=== PATIENT | male | born 1955 | race Caucasian/White ===

== ENCOUNTER 2023-04-21 17:54 | Emergency (ER) | payer MEDICARE, SELFPAY ==
[2023-04-21 17:57] VITALS: BP 149/81; PULSE 90; RESP 14; O2SAT 98
--- NOTE | 2023-04-21 18:04 | CTR_ITS ---
PROCEDURE INFORMATION: Exam: CT Abdomen And Pelvis With Contrast Exam date and time: 04/21/2023 6:51 PM Age: 67 years old Clinical indication: Abdominal pain; Generalized; Prior surgery; Surgery date: 6+ months; Surgery type: Appy. Iliac stent; Patient HX: C/O diffuse abd pain with nausea TECHNIQUE: Imaging protocol: Computed tomography of the abdomen and pelvis with contrast. Radiation optimization: All CT scans at this facility use at least one of these dose optimization techniques: automated exposure control; mA and/or kV adjustment per patient size (includes targeted exams where dose is matched to clinical indication); or iterative reconstruction. Contrast material: OMNI 350; Contrast volume: 100 ml; Contrast route: INTRAVENOUS (IV); REPORTING DATA: Count of CT and Cardiac NM exams in prior 12 months: This patient has received 0 known CTs and 0 known cardiac nuclear medicine studies in the 12 months prior to the current study. COMPARISON: No relevant prior studies available. RADIATION DOSE METRICS: Total DLP (mGy-cm): 427.23 FINDINGS: Lungs: Emphysematous changes suspected. Coronary arteries: Coronary artery atherosclerotic calcification. Liver: Hepatic steatosis. Gallbladder and bile ducts: Gallbladder wall appears somewhat prominent with cholelithiasis, ultrasound could further evaluate this as clinically indicated. Pancreas: Normal. No ductal dilation. Spleen: Spleen enlarged to 16 cm. Adrenal glands: Normal. No mass. Kidneys and ureters: Normal. No hydronephrosis. Stomach and bowel: Prominent fluid in the small bowel without dilation along with gastric wall thickening may reflect a gastroenteritis. Mild sigmoid colon wall thickening is also present, likely secondary to nondistention, please correlate for colitis. Diverticulosis without diverticulitis. Appendix: No evidence of appendicitis. Intraperitoneal space: Unremarkable. No free air. No significant fluid collection. Vasculature: Right common and external iliac artery stent. Lymph nodes: Unremarkable. No enlarged lymph nodes. Urinary bladder: Unremarkable as visualized. Reproductive: Unremarkable as visualized. Bones/joints: Unremarkable. No acute fracture. Soft tissues: Small left inguinal hernia containing omentum without bowel. CT/CT abdomen pelvis w con* [id number] IMPRESSION: 1. Prominent fluid in the small bowel without dilation along with gastric wall thickening may reflect a gastroenteritis. Mild sigmoid colon wall thickening is also present, likely secondary to nondistention, please correlate for colitis. 2. Gallbladder wall appears somewhat prominent with cholelithiasis, ultrasound could further evaluate this as clinically indicated. 3. Spleen enlarged to 16 cm. 4. Diverticulosis without diverticulitis. 5. Right common and external iliac artery stent. 6. Small left inguinal hernia containing omentum without bowel. 7. Emphysematous changes suspected. 8. Coronary artery atherosclerotic calcification. 9. Hepatic steatosis.
--- NOTE | 2023-04-21 18:05 | W.ED.ABDPA2 ---
HPI - Abdominal Pain General: Chief Complaint: Abdominal Pain Stated Complaint: not able to eat, nausea Time Seen by Provider: 04/21/23 18:02 Source: patient Mode of arrival: ambulatory Limitations: no limitations History of Present Illness: 67-year-old male states he had some abdominal pain over the last 4 days. He states it is mainly with eating he states he had a hard time swallowing and gets a lot of pain when he is swallowing. He denies any vomiting or diarrhea states that he is 88 and is really not having much pain his pain currently is a 2 out of 10. He sent here from urgent care. Associated Symptoms: Denies chills, dysuria and fever(s) Review of Systems Const: Denies: fever(s), chills, body aches or change in appetite ENMT: Denies: throat pain or dental pain Card: Denies: chest pain Resp: Denies: dyspnea GI: Reports: abdominal pain and dysphagia : Denies: dysuria Musc: Denies: neck pain or back pain Skin/Breast: Denies: rash Neuro: Denies: headache(s) Psych: Denies: depression Cali/Lymph: Denies: easy bruising All/Imm: Denies: urticaria Physical Exam Const: COMMON NORMALS: no acute distress, patient oriented x3 and healthy appearing HENMT: COMMON NORMALS: normocephalic and atraumatic HEAD & SCALP: normocephalic and atraumatic Eye: COMMON NORMALS: Equal, round and reactive pupils present and EOMs intact bilaterally PUPIL: Yes Equal, round and reactive pupils present Neck/C-Spine: COMMON NORMALS: full ROM and supple Chest: COMMONS NORMALS: normal inspection of the chest and normal palpation of entire chest wall Resp: COMMON NORMALS: normal respiratory effort, No retractions, No use of accessory muscles and clear to auscultation bilaterally AUSCULTATION: clear to auscultation bilaterally Cardio: COMMON NORMALS: regular rate, regular rhythm and No murmurs present (Cardio) RATE: regular rate RHYTHM: regular rhythm GI: COMMON NORMALS: Normal to inspection, nondistended, normoactive bowel sounds present, Soft to palpation, non-tender and no masses PALPATION: Yes Soft to palpation Extremity: COMMON NORMALS: normal to inspection and full ROM Neuro: COMMON NORMALS: patient oriented x3, moves all extremities and no focal motor deficits Psych: COMMON NORMALS: mental status grossly normal, Normal thought process present and cooperative THOUGHT PROCESS: Normal thought process present Skin: COMMON NORMALS: no rashes or lesions noted and no wounds GENERAL SKIN EXAM: no rashes or lesions noted Course Vital Signs: Vital signs: Vital Signs Pulse Rate 85 04/21/23 20:07 Respiratory Rate 14 04/21/23 17:57 Blood Pressure 127/70 04/21/23 20:07 Pulse Oximetry 93 04/21/23 20:07 Oxygen Delivery Me thod Room Air 04/21/23 17:57 MDM - Abdominal Pain Medical Decision Making Patient presents here with abdominal pain CT showed gastroenteritis he had no pain here he does have a leukopenia along with thrombocytopenia on his blood work I did spoke to the hospitalist will get admit him. Is worried about possible tickborne illness. I talked to patient form he has a severe low white count and low platelet I strongly recommended admission he states he is not staying in the hospital no matter what informed him that his blood work was very abnormal that he needed further work-up he understood this and he would not agree to admission he is going to sign out AGAINST MEDICAL ADVICE we will place him on doxycycline was trying to talk him into a tick panel but he was refusing. He is return if worsening or if he changes his mind. Medical Records I reviewed the patient's medical records. Lab Data I reviewed the patient's lab results. 04/21/23 18:15 04/21/23 18:15 Labs/Radiology: Radiology Impressions Abdomen/Pelvis CT 04/21/23 18:04 IMPRESSION: 1. Prominent fluid in the small bowel without dilation along with gastric wall thickening may reflect a gastroenteritis. Mild sigmoid colon wall thickening is also present, likely secondary to nondistention, please correlate for colitis. 2. Gallbladder wall appears somewhat prominent with cholelithiasis, ultrasound could further evaluate this as clinically indicated. 3. Spleen enlarged to 16 cm. 4. Diverticulosis without diverticulitis. 5. Right common and external iliac artery stent. 6. Small left inguinal hernia containing omentum without bowel. 7. Emphysematous changes suspected. 8. Coronary artery atherosclerotic calcification. 9. Hepatic steatosis. Laboratory Results WBC 1.2 10^3/uL (4.0-10.0) L 04/21/23 18:15 RBC 5.37 10^6/uL (4.1-5.3) H 04/21/23 18:15 Hgb 13.4 g/dL (11.7-16.6) 04/21/23 18:15 Hct 40.4 % (42.0-52.0) L 04/21/23 18:15 MCV 75.2 fl (80-94) L 04/21/23 18:15 MCH 25.0 pg (28.0-34.0) L 04/21/23 18:15 MCHC 33.2 g/dL (30.0-36.0) 04/21/23 18:15 RDW 15.0 % (12.1-15.1) 04/21/23 18:15 Plt Count 48 10^3/cmm (130-400) L 04/21/23 18:15 MPV 11.4 fL (7.4-10.4) H 04/21/23 18:15 Neut % (Auto) 77.3 % 04/21/23 18:15 Lymph % (Auto) 14.8 % 04/21/23 18:15 Beadle % (Auto) 7.0 % 04/21/23 18:15 Eos % (Auto) 0.0 % 04/21/23 18:15 Baso % (Auto) 0.0 % 04/21/23 18:15 Neut # (Auto) 0.89 10^3/uL (1.8-7.7) L* 04/21/23 18:15 Lymph # (Auto) 0.2 10^3/uL (0.8-4.8) L 04/21/23 18:15 Beadle # (Auto) 0.1 10^3/uL (0.2-0.9) L 04/21/23 18:15 Eos # (Auto) 0.0 10^3/uL (0.0-0.8) 04/21/23 18:15 Baso # (Auto) 0.0 10^3/uL (0.0-0.1) 04/21/23 18:15 Nucleated RBC % (auto) 0 % 04/21/23 18:15 Nucleated RBCs # 0.0 /100WBC 04/21/23 18:15 PT 18.40 SECONDS (12.1-14.9) H 04/21/23 Unknown INR 1.47 (0.8-1.2) H 04/21/23 Unknown Sodium 128 mmol/L (136-145) L 04/21/23 18:15 Potassium 4.2 mmol/L (3.5-5.1) 04/21/23 18:15 Chloride 92 mmol/L (98-107) L 04/21/23 18:15 Carbon Dioxide 23 mmol/L (22-29) 04/21/23 18:15 Anion Gap 17.2 (5-19) 04/21/23 18:15 BUN 17 mg/dL (8-23) 04/21/23 18:15 Creatinine 0.9 mg/dL (0.7-1.2) 04/21/23 18:15 GFR Calculation 83.7 mL/min (90-130) L 04/21/23 18:15 Glucose 256 mg/dL (65-115) H 04/21/23 18:15 Calculated Osmolality 276 mOsm/kg (285-295) L 04/21/23 18:15 Lactic Acid 1.7 mmol/L (0.5-2.2) 04/21/23 18:25 Calcium 8.5 mg/dL (8.5-10.5) 04/21/23 18:15 Total Bilirubin 1.7 mg/dL (0.15-1.2) H 04/21/23 18:15 AST 267 U/L (0-40) H 04/21/23 18:15 ALT 354 U/L (0-41) H 04/21/23 18:15 Alkaline Phosphatase 225 U/L (40-130) H 04/21/23 18:15 Total Protein 7.3 g/dL (6.6-8.7) 04/21/23 18:15 Albumin 4.2 g/dL (3.5-5.2) 04/21/23 18:15 Globulin 3.1 g/dL (1.3-4.6) 04/21/23 18:15 Lipase 72 U/L (13-60) H 04/21/23 18:15 Discharge Plan Discharge Patient Disposition: Left Against Medical Advice Clinical Impression: Abdominal pain, Leukopenia, Thrombocytopenia Condition: Stable Prescriptions: New doxycycline hyclate 100 mg tablet 100 mg PO BID 10 Days Qty: 20 0RF No Action warfarin 10 mg tablet 5 mg PO DAILY glipizide 10 mg tablet 10 mg PO BID Janumet XR 50-1,000 mg tablet, ER multiphase 24 hr 1 tab PO DAILY Referrals: Diane Holcomb [Primary Care Provider] - Discharge Diet: Advance as tolerated Discharge Activity: Resume usual activity Patient Instructions: Abdominal Pain (ED) Coding Level of Care Code ED Principal Secretary for Lili Mejia
[2023-04-21] MEDS: lidocaine 2% viscous 15 ML, aluminum-mag hydrox-simethicon 30 ML, sucralfate oral liq 1 GM PO (18:33)
[2023-04-21] MEDS: ondansetron 2 mg/ML SDV 2 mL 4 MG IVP (18:36)
[2023-04-21 18:38] LABS: Hematocrit 40.4 % (42.0-52.0); Hemoglobin 13.4 g/dL (11.7-16.6); Lymphocytes # 0.2 10^3/uL (0.8-4.8); Lymphocytes % 14.8 %; Mean Corpuscular HGB Conc 33.2 g/dL (30.0-36.0); Mean Corpuscular Volume 75.2 fl (80-94); Mean Platelet Volume 11.4 fL (7.4-10.4); Monocytes # 0.1 10^3/uL (0.2-0.9); Neutrophils % 77.3 %; Nucleated Red Blood Cells % 0 %; Platelet Count 48 10^3/cmm (130-400); Red Blood Count 5.37 10^6/uL (4.1-5.3); White Blood Count 1.2 10^3/uL (4.0-10.0)
[2023-04-21 18:43] LABS: Alanine Aminotransferase 354 U/L (0-41); Albumin Level 4.2 g/dL (3.5-5.2); Alkaline Phosphatase 225 U/L (40-130); Anion Gap 17.2 (5-19); Aspartate Amino Transferase 267 U/L (0-40); Blood Urea Nitrogen 17 mg/dL (8-23); Calcium 8.5 mg/dL (8.5-10.5); Carbon Dioxide 23 mmol/L (22-29); Chloride 92 mmol/L (98-107); Globulin 3.1 g/dL (1.3-4.6); Glomerular Filtration Rate 83.7 mL/min (90-130); Glucose 256 mg/dL (65-115); Lipase 72 U/L (13-60); Osmolality Calculated 276 mOsm/kg (285-295); Potassium 4.2 mmol/L (3.5-5.1); Sodium 128 mmol/L (136-145); Total Bilirubin 1.7 mg/dL (0.15-1.2); Total Protein 7.3 g/dL (6.6-8.7)
[2023-04-21 18:47] VITALS: BP 120/66; PULSE 81; O2SAT 95
[2023-04-21] MEDS: iohexol 350 mg/mL 500 mL Btl (per mL) IV (18:54)
[2023-04-21 19:15] LABS: Lactic Sepsis W/Reflex 1.7 mmol/L (0.5-2.2)
[2023-04-21 19:15] LABS: Slide Review Slide Review Perform
[2023-04-21 19:20] LABS: Neutrophils # 0.89 10^3/uL (1.8-7.7)
[2023-04-21] MEDS: sodium chloride 0.9% 1,000 ML 999 ML IV (19:27)
[2023-04-21 20:07] VITALS: BP 127/70; PULSE 85; O2SAT 93
[2023-04-21 20:17] LABS: INR 1.47 (0.8-1.2)
== END 2023-04-21 20:22 | disposition left against medical advice (07) ==
PROVIDERS: Emergency Provider Emergency Medicine; PCP Internal Medicine
DX: R10.9 Unspecified abdominal pain (principal); D72.819 Decreased white blood cell count, unspecified; D69.6 Thrombocytopenia, unspecified; Z20.9 Contact with and (suspected) exposure to unspecified communicable disease; Z53.29 Procedure and treatment not carried out because of patient's decision for other reasons
CPT/HCPCS: 74177; 80053; 83605; 83690; 85025; 85610; 96361; 96374; 99285; J2405; J7030; Q9967